=== PATIENT | male | born 1955 | race Caucasian/White ===

== ENCOUNTER 2016-11-27 19:17 | Observation (INO) | payer BC ==
--- NOTE | ~2016-11-27 | HP ---
History And Physical [place] [address] [facility] [place]. [address] NAME: JELLY COVINGTON : 57 STATUS : ADM Monster PAT#: [id number] AGE: 61 ADM/REG DATE : 11/27/16 MR#: [id number] REPORT SERV DATE: 11/28/16 DICTATED BY: DATE: REPORT STATUS : Draft TRANSCRIBED BY: MODL DATE: 11/28/16 DATE OF ADMISSION: 11/27/2016 CHIEF COMPLAINT: Chest pain and left arm pain. HISTORY OF PRESENT ILLNESS: This is a very pleasant 61-year-old white male with no known history of coronary artery disease, who states that he has been feeling fatigued in the last six months with intermittent substernal chest pain and left arm pain, which has intensified. He has also had a feeling of a thump in his chest that lasts a few seconds, makes him dizzy, but not blackout. This has also occurred intermittently in the last six months and the event lasts for a few seconds. The patient presented to the emergency department due to having intensified left shoulder and left arm pain that felt like an ache on Monday, and on Monday at approximately 3 o'clock in the afternoon, he developed substernal chest pain 8/10 that was sharp, accompanied with pressure to his chest and nausea. He denies being short of breath or being diaphoretic at that time. His gave him two baby aspirin, which relieved some of the pain, but not completely. His pain was completely resolved in the emergency room after he states receiving morphine. He also denies any orthopnea or edema. He stated that last week on Monday, Monday, and , he was putting up carpet in three separate rooms and has been pretty active. He has noticed the fatigue in the last six months on and off with intermittent pain. He currently reports a slight ache to his mid sternum 1/10 and mild ache to his left arm without any other complaints. He denies any personal history of a myocardial infarction, stroke, blood clot, or pulmonary embolism. The patient denies any recent fever or chills or syncopal episodes. PAST MEDICAL HISTORY: Asthma, exercise induced. PAST SURGICAL HISTORY: Negative, but he has had a colonoscopy with a few polyps removed. SOCIAL HISTORY: He is a diesel engine assembler. He is with two children. He smoked one pack per week for 10 years and quit in the . He denies any alcohol or illicit drug use. Recently, he does state that he did use marijuana a few times in his 20s. FAMILY HISTORY: His mother at the age of 62 with an KS. She also had a congestive heart failure. His father from lung cancer and no known cardiac history. REVIEW OF SYSTEMS: A 14-point review of systems was performed, significant for HPI. ALLERGIES: NO KNOWN ALLERGIES. HOME MEDICATIONS: 1. Famotidine 20 mg tablets, he takes 10 mg p.o. twice a day. 2. Zyrtec 10 mg p.o. at bedtime. History And Physical [address] [address] NAME: JELLY COVINGTON : 57 STATUS : ADM Monster PAT#: [id number] AGE: 61 ADM/REG DATE : 11/27/16 MR#: [id number] REPORT SERV DATE: 11/28/16 DICTATED BY: DATE: REPORT STATUS : Draft TRANSCRIBED BY: AARON DATE: 11/28/16 PHYSICAL EXAMINATION: GENERAL: Cooperative, in no apparent distress. HEENT: Head normocephalic, anicteric. Normal EOM. PERRLA. No xanthelasma. Nares patent. Moist mucous membranes. NECK: Trachea midline. No thyromegaly, JVD or bruits. RESPIRATORY: Clear to auscultation bilaterally anterior and posterior. Respirations even and unlabored. No wheezes, rhonchi or crackles. CARDIOVASCULAR: Regular rate and rhythm. No murmur, rub or gallop appreciated. No chest wall tenderness to palpation. ABDOMEN: Soft, nontender, nondistended, normal bowel sounds auscultated throughout. No masses or organomegaly. EXTREMITIES: No peripheral edema. DP/PT and radial pulses palpable bilaterally. No clubbing or cyanosis. SKIN: Warm, dry and intact. Normal turgor. No pallor or cyanosis. NEURO/PSYCH: Alert, oriented x3 with no acute distress. Affect appropriate to current situation. LABORATORY DATA: Troponin less than 0.02 x3, potassium 4.2, BUN 14, creatinine 1.44, GFR 61, calcium 9.8, magnesium 2.3. White blood cells 5.9, hemoglobin 15.3, hematocrit 43.1, platelets 168, INR 1.0. IMAGING: EKG shows sinus rhythm at 66. Chest x-ray shows lungs clear, heart size normal. ASSESSMENT AND PLAN: 1. Chest pain. The patient has been observed in the CPU overnight to rule out myocardial infarction with serial enzymes and serial EKGs. Troponins have been negative. EKG shows no significant changes. He will be held n.p.o. for an MPI today, home if low- risk study. The patient will be asked to follow up with his PCP in one-two weeks with all the studies being sent to that office. If anything suggestive of ischemia, Cardiology referral will be initiated. 2. Palpitations, he denies any occurring today. There was no ectopy on the nursing department chairperson. We will order a 24-hour Holter monitor with the results to be sent to the patient's PCP. 3. Asthma. He denies shortness of breath. It is managed by his PCP and is stable. 4. Acute kidney injury. His creatinine is 1.44, GFR is 52. We will defer to PCP for observation and management. 5. Hyperglycemia, noted on his lab work. Blood sugar of 128 while fasting. We will defer that as well to PCP for A1c check and further observation and management. EKS/MODL Natalia Mcmahon APN History And Physical [address] [address] NAME: JELLY COVINGTON : 57 STATUS : ADM Monster PAT#: [id number] AGE: 61 ADM/REG DATE : 11/27/16 MR#: [id number] REPORT SERV DATE: 11/28/16 DICTATED BY: DATE: REPORT STATUS : Draft TRANSCRIBED BY: MODL DATE: 11/28/16 / [id number] CC: Kristy Raman, MSN, [employer] Crescencio Ruano D.O.
--- NOTE | ~2016-11-27 | HOLTER ---
Holter Monitor [facility] [address] [place]. [address] NAME: JELLY COVINGTON : 57 STATUS : DIS Monster PAT#: [id number] AGE: 61 ADM/REG DATE : 11/27/16 MR#: [id number] REPORT SERV DATE: 12/02/16 DICTATED BY: SAUNDRA BURTON DATE: 12/02/16 REPORT STATUS : Cancelled TRANSCRIBED BY: AARON DATE: 12/02/16 24-HOUR HOLTER MONITOR REPORT REFERRING PHYSICIAN: Kristy Raman, nurse practitioner. INDICATIONS: A 61-year-old gentleman with palpitations. RECORDING QUALITY: No activities identified in the diary. RHYTHM: Sinus rhythm with heart rate from 61 to 150 beats per minute recorded. Average heart rate 81 beats per minute sinus. Baseline artifacts noted. VENTRICULAR ARRHYTHMIA: Seven rare PVCs which were singles with 2 couplets. SUPRAVENTRICULAR ARRHYTHMIA: Small amount of PACs up to 299, which were singles, most with 3 couplets and 6 short runs of SVT, 15 beats the longest. All of them asymptomatic. No pauses. No clear evidence of atrial fibrillation. SYMPTOMS: None. CONCLUSION: Normal sinus rhythm with a few episodes of SVT without any symptoms. No evidence of atrial fibrillation. Please see attached worksheet for further details. Definitions for premature beat frequency Approximately Rare <100 <0.1 % Occasional 100-1500 0.1 - 1.5 % Frequent >1500 >1.5 % MIKE/AARON Saundra Burton M.D. / [id number]
[2016-11-27 17:59] LABS: BASOPHILS 0.5 %; BASOPHILS ABSOLUTE 0.03 10/3/uL (0.0-0.16); EOSINOPHILS 0.7 %; EOSINOPHILS ABSOLUTE 0.04 10/3/uL (0.0-0.53); ER CBC TAT 0 Hrs 10 Mins; HEMATOCRIT 43.1 % (40.0-51.0); HEMOGLOBIN 15.3 g/dL (13.6-17.8); IMMATURE GRANULOCYTES 0.5 %; IMMATURE GRANULOCYTES ABSOLUTE 0.03 10/3/uL (0.0-0.11); LYMPHOCYTES 21.8 %; LYMPHOCYTES ABSOLUTE 1.29 10/3/uL (0.67-4.30); MEAN CORPUS HGB CONC 35.5 g/dL (32.0-36.0); MEAN CORPUSCULAR HEMOGLOB 31.2 pg (26.0-34.0); MEAN CORPUSCULAR VOLUME 87.8 fL (80-100); MEAN PLATELET VOLUME 11.2 fL (9.2-13.0); MONOCYTES 6.6 %; MONOCYTES ABSOLUTE 0.39 10/3/uL (0.21-1.20); NEUTROPHILS 69.9 %; NEUTROPHILS ABSOLUTE 4.14 10/3/uL (2.02-8.40); PLATELET COUNT 168 10/3/uL (150-400); RBC DISTRIBUTION WIDTH 13.6 % (12.0-16.0); RED CELL COUNT 4.91 10/6/uL (4.7-6.1); WHITE BLOOD CELLS 5.9 10/3/uL (4.5-10.5)
[2016-11-27 18:00] LABS: MANUAL DIFF NO %
[2016-11-27 18:08] LABS: PARTIAL THROMBO TIME 27.8 SEC (22.5-37.2)
[2016-11-27 18:09] LABS: PROTIME (NOT ORD) 13.4 SEC (12.0-14.5)
[2016-11-27 18:14] LABS: BUN (BLOOD UREA NITROGEN) 14 MG/DL (6-23); CALCIUM, SERUM 9.8 MG/DL (8.5-10.4); CHEST PAIN PROFILE TAT 0 Hrs 25 Mins; CHLORIDE, SERUM 108 MMOL/L (96-112); CO2 (CARBON DIOXIDE) 29 MMOL/L (24-34); CREATININE 1.44 MG/DL (0.70-1.30); GFR AFRICAN AMERICAN 61 ML/MIN (>=60); GFR NON AFRICAN AMERICAN 52 ML/MIN (>=60); GLUCOSE, SERUM 128 MG/DL (60-99); POTASSIUM, SERUM 4.2 MMOL/L (3.5-5.3); SODIUM, SERUM 141 MMOL/L (135-148); TROPONIN I <0.02 NG/ML (<0.05)
[~2016-11-27 19:17] MED LIST: PEP20 PO; ZYRTEC ALLGY10 MG PO
== END 2016-11-28 16:48 | disposition home or self-care (01) ==
LOC: ER 19:17 → CDU1 20:27
PROVIDERS: Emergency Medicine
DX: R07.9 Chest pain, unspecified (principal); R00.2 Palpitations; J45.909 Unspecified asthma, uncomplicated; N17.9 Acute kidney failure, unspecified; R73.9 Hyperglycemia, unspecified
CPT/HCPCS: 71020; 78452; 80048; 83735; 84484; 85025; 85610; 85730; 93005; 93017; 93225; 96374; 96375; 99285; A9270-GY; A9502; G0378; J2405